=== PATIENT | male | born 1960 | race Hispanic/Latino ===

== ENCOUNTER 2017-09-28 22:01 | Inpatient (IN) | payer OTHER ==
[2017-09-28 23:28] LABS: CARBON DIOXIDE 27 mmol/L (21-32); CHLORIDE 100 mmol/L (101-111); GLOMERULAR FILTR. RATE CALC 82 mL/min (>60); GLUCOSE,RANDOM 184 mg/dL (70-105); POTASSIUM 4.2 mmol/L (3.5-5.1); SODIUM SERUM 136 mmol/L (136-145); UREA NITROGEN, BLOOD 9 mg/dL (7-18)
[2017-09-28 23:41] LABS: ALANINE AMINOTRANSFERASE 61 U/L (12-78); ALBUMIN 2.8 g/dL (3.5-5.0); ASPARTATE AMINOTRANSFERASE 37 U/L (10-37); CREATINE KINASE MB < 0.5 ng/mL (0.5-3.6); CREATINE KINASE, TOTAL 86 U/L (21-232); MYOGLOBIN 41 ng/mL (10-92); TOTAL PROTEIN, SERUM 6.7 g/dL (6.0-8.3)
[2017-09-28 23:42] LABS: APPEARANCE,URINE Clear (CLEAR); BILIRUBIN,URINE Negative (NEGATIVE); COLOR,URINE Dark Yellow (YELLOW); GLUCOSE, URINE (UA) Negative (NEGATIVE); KETONES,URINE Negative (NEGATIVE); LEUKOCYTE ESTERASE ,URINE Negative (NEGATIVE); NITRATE,URINE Negative (NEGATIVE); OCCULT BLOOD,URINE Negative (NEGATIVE); PH,URINE 6.5 (5.0-8.0); PROTEIN,URINE POS 1+ (NEGATIVE)
[2017-09-28 23:56] LABS: RBC,URINE None Seen /HPF (0-1); WBC,URINE None Seen /HPF (0-1)
[2017-09-28 23:57] LABS: BACTERIA,URINE None Seen /HPF (None Seen); MUCUS,URINE Rare LPF (None Seen); SQUAMOUS EPITHELIAL CELL,UR None Seen /HPF (0-2)
[2017-09-29] VITALS (17 sets, daily range): BP systolic 122–157; BP diastolic 61–92
[2017-09-29] MEDS: NITROGLYCERIN 1GM/1 INCH PACKET TD SCH ×4 (00:30→23:46)
[2017-09-29] MEDS ORDERED: DEXTROSE 50%-WATER 50 ML DISP.SYRIN IV PRN (00:30)
[2017-09-29] MEDS ORDERED: GLUCAGON 1MG KIT 1 MG ML IM PRN (00:30)
[2017-09-29] MEDS: SODIUM CHLORIDE 0.9% 1000ML 1,000 ML IV SCH ×5 (00:30→22:24)
[2017-09-29] MEDS ORDERED: ONDANSETRON HCL 4 MG/2 ML VIAL IV PRN (00:30)
[2017-09-29] MEDS ORDERED: NITROGLYCERIN 0.4 MG SL TAB SL PRN (00:30)
[2017-09-29] MEDS ORDERED: ACETAMINOPHEN 325 MG TAB PO PRN (00:30)
[2017-09-29] MEDS ORDERED: SODIUM CHLORIDE 0.9% 1000ML 3,000 ML IV ONE (02:07)
[2017-09-29] MEDS ORDERED: NITROGLYCERIN 1GM/1 INCH PACKET TD ONE (02:07)
[2017-09-29 06:35] LABS: CREATINE KINASE MB 2.2 ng/mL (0.5-3.6); THYROID STIMULATING HORMONE 1.08 uIU/mL (0.36-3.74)
[2017-09-29 06:44] LABS: TROPONIN I 3.02 ng/mL (0.00-0.06)
[2017-09-29] MEDS: INSULIN HUMULIN R 100 UNIT/ML 3ML SQ SCH ×4 (07:30→22:12)
[2017-09-29] MEDS: FAMOTIDINE/PF 20 MG/2 ML VIAL IV SCH ×2 (09:00→22:00)
[2017-09-29] MEDS ORDERED: METOPROLOL TARTRATE 25 MG TAB PO SCH (09:00)
[2017-09-29] MEDS: ASPIRIN 325 MG TABLET PO SCH (09:00)
[2017-09-29] MEDS ORDERED: BIVALIRUDIN 250 MG/VIAL IV ONE ×2 (11:34→12:05)
[2017-09-29] MEDS ORDERED: NITROGLYCERIN 5 MG/ML 10 ML VIAL IV ONE (11:35)
[2017-09-29] MEDS ORDERED: HEPARIN SODIUM 1000UNIT/ML 10ML VIAL ONE (11:35)
[2017-09-29] MEDS ORDERED: IOPAMIDOL-370 100 ML VIAL IV ONE (11:35)
[2017-09-29] MEDS ORDERED: LIDOCAINE HCL 2% 20ML ONE (11:35)
[2017-09-29] MEDS ORDERED: ISOVUE-370 50ML VIAL IV ONE (11:35)
[2017-09-29 11:44] LABS: BASOPHILS % (AUTO) 0.2 % (0.0-5.0); EOSINOPHILS % (AUTO) 0.2 % (0.0-8.0); HEMATOCRIT 38.9 % (42-54); LYMPHOCYTES % (AUTO) 12.9 % (21.0-51.0); MEAN CORPUSCULAR HEMOGLOBIN 29.2 pg (27.0-33.0); MEAN CORPUSCULAR HGB CONC 33.2 g/dL (32.0-36.0); MEAN CORPUSCULAR VOLUME 87.9 fL (79-99); MONOCYTES % (AUTO) 10.3 % (3.0-13.0); NEUTROPHILS % (AUTO) 76.4 % (40.0-77.0); PLATELET COUNT (AUTO) 170 K/uL (130-400); RED BLOOD CELL COUNT(AUTO) 4.42 MIL/uL (4.50-6.20); RED CELL DISTRIBUTION WIDTH 13.6 % (11.0-15.5); WHITE BLOOD COUNT (AUTO) 14.3 K/uL (4.8-10.8)
[2017-09-29 12:00] LABS: INR 0.95 (0.85-1.15); PARTIAL THROMBOPLASTIN TIME 31.5 SEC (26.3-35.5)
[2017-09-29 12:18] LABS: CREATINE KINASE MB 1.6 ng/mL (0.5-3.6)
[2017-09-29 12:21] LABS: TROPONIN I 4.4 ng/mL (0.00-0.06)
[2017-09-29] MEDS ORDERED: MIDAZOLAM HCL 1 MG/ML 2ML VIAL ONE (12:26)
[2017-09-29] MEDS ORDERED: MORPHINE SULFATE 4 MG/1ML SYG ONE (12:26)
[2017-09-29] MEDS ORDERED: TICAGRELOR 90 MG TABLET ONE (13:07)
[2017-09-29] MEDS ORDERED: ASPIRIN 325MG EC TAB 325 MG TABLET.DR PO ONE (13:07)
[2017-09-29] MEDS: ACETAMINOPHEN 325 MG TAB PO PRN (14:32)
[2017-09-29] MEDS: METOPROLOL TARTRATE 25 MG TAB PO SCH (22:00)
[2017-09-29] MEDS: TICAGRELOR 90 MG TABLET PO SCH (22:00)
[2017-09-30 03:59] LABS: MEAN CORPUSCULAR HEMOGLOBIN 29.7 pg (27.0-33.0); MEAN CORPUSCULAR VOLUME 87.2 fL (79-99); PLATELET COUNT (AUTO) 168 K/uL (130-400); RED BLOOD CELL COUNT(AUTO) 4.13 MIL/uL (4.50-6.20); RED CELL DISTRIBUTION WIDTH 13.7 % (11.0-15.5); WHITE BLOOD COUNT (AUTO) 14.1 K/uL (4.8-10.8)
[2017-09-30 04:00] VITALS: BP 117/78
[2017-09-30 04:16] LABS: CREATININE 1.1 mg/dL (0.5-1.5); POTASSIUM 4.3 mmol/L (3.5-5.1)
[2017-09-30] MEDS: INSULIN HUMULIN R 100 UNIT/ML 3ML SQ SCH ×4 (07:08→21:00)
[2017-09-30 07:34] VITALS: BP 130/75
[2017-09-30] MEDS ORDERED: TICA90TA PO (08:39)
[2017-09-30] MEDS ORDERED: ASPI-1005 PO (08:39)
[2017-09-30] MEDS ORDERED: PRAV20TA4 PO (08:39)
[2017-09-30] MEDS ORDERED: METO25 PO (08:39)
[2017-09-30] MEDS: ASPIRIN 81MG TAB.CHEW PO SCH ×2 (09:00→09:15)
[2017-09-30] MEDS: ASPIRIN 325 MG TABLET PO SCH (09:00)
[2017-09-30] MEDS: FAMOTIDINE/PF 20 MG/2 ML VIAL IV SCH ×2 (09:12→21:47)
[2017-09-30] MEDS: TICAGRELOR 90 MG TABLET PO SCH ×2 (09:13→21:47)
[2017-09-30] MEDS: NITROGLYCERIN 1GM/1 INCH PACKET TD SCH ×2 (09:15→15:52)
[2017-09-30] MEDS: PANTOPRAZOLE SODIUM 40 MG TABLET.DR PO SCH (09:15)
[2017-09-30] MEDS: METOPROLOL TARTRATE 25 MG TAB PO SCH ×2 (09:16→21:47)
[2017-09-30 11:20] VITALS: BP 121/68
[2017-09-30] MEDS: ACETAMINOPHEN 325 MG TAB PO PRN (15:53)
[2017-09-30 16:12] VITALS: BP 140/81
[2017-09-30] MEDS: SODIUM CHLORIDE 0.9% 1000ML 1,000 ML IV SCH ×2 (16:30→21:54)
[2017-09-30 16:44] LABS: APPEARANCE,URINE Clear (CLEAR); BILIRUBIN,URINE Small (NEGATIVE); COLOR,URINE Dark Yellow (YELLOW); GLUCOSE, URINE (UA) Negative (NEGATIVE); KETONES,URINE Trace mg/dL (NEGATIVE); LEUKOCYTE ESTERASE ,URINE Negative (NEGATIVE); NITRATE,URINE Negative (NEGATIVE); OCCULT BLOOD,URINE Negative (NEGATIVE); PH,URINE 7.5 (5.0-8.0); PROTEIN,URINE POS 2+ (NEGATIVE); UROBILINOGEN,URINE >=8.0 mg/dL (0.2-1.0)
[2017-09-30 16:55] LABS: BACTERIA,URINE None Seen /HPF (None Seen); MUCUS,URINE Few LPF (None Seen); RBC,URINE None Seen /HPF (0-1); SQUAMOUS EPITHELIAL CELL,UR 0-2 /HPF (0-2); WBC,URINE 0-1 /HPF (0-1)
[2017-09-30] MEDS: LEVOFLOXACIN 500 MG/D5W 100 ML 100 ML IV SCH (18:09)
[2017-09-30 19:26] VITALS: BP 136/74
[2017-09-30 23:27] VITALS: BP 123/65
[2017-10-01] MEDS: NITROGLYCERIN 1GM/1 INCH PACKET TD SCH ×3 (00:29→16:19)
[2017-10-01 03:58] VITALS: BP 123/67
[2017-10-01 04:00] LABS: MEAN CORPUSCULAR HEMOGLOBIN 30.2 pg (27.0-33.0); MEAN CORPUSCULAR HGB CONC 34.5 g/dL (32.0-36.0); MEAN CORPUSCULAR VOLUME 87.6 fL (79-99); PLATELET COUNT (AUTO) 206 K/uL (130-400); RED BLOOD CELL COUNT(AUTO) 4.11 MIL/uL (4.50-6.20); RED CELL DISTRIBUTION WIDTH 13.8 % (11.0-15.5); WHITE BLOOD COUNT (AUTO) 15.6 K/uL (4.8-10.8)
[2017-10-01 04:25] LABS: BASOPHILS % (MANUAL) 1 % (0-2); LYMPHOCYTES % (MANUAL) 8 % (22-44); MONOCYTES % (MANUAL) 11 % (2-9); SEGMENTED NEUTROPHILS % 80 % (40-70)
[2017-10-01 04:26] LABS: MAN.DIFF COMMENT-IMPRESSION MANUAL DIFFERENTIAL; PLATELET MORPHOLOGY COMMENT ADEQUATE
[2017-10-01] MEDS: INSULIN HUMULIN R 100 UNIT/ML 3ML SQ SCH ×4 (06:47→21:47)
[2017-10-01 07:14] VITALS: BP 115/58
[2017-10-01] MEDS: METOPROLOL TARTRATE 25 MG TAB PO SCH ×2 (08:03→21:32)
[2017-10-01] MEDS: TICAGRELOR 90 MG TABLET PO SCH ×2 (08:03→21:30)
[2017-10-01] MEDS: ASPIRIN 81MG TAB.CHEW PO SCH ×2 (08:03→09:00)
[2017-10-01] MEDS: FAMOTIDINE/PF 20 MG/2 ML VIAL IV SCH ×2 (08:03→21:30)
[2017-10-01] MEDS: PANTOPRAZOLE SODIUM 40 MG TABLET.DR PO SCH (08:03)
[2017-10-01] MEDS: ASPIRIN 325 MG TABLET PO SCH (09:00)
[2017-10-01] MEDS: SODIUM CHLORIDE 0.9% 1000ML 1,000 ML IV SCH ×2 (09:28→21:51)
[2017-10-01 11:23] VITALS: BP 116/64
[2017-10-01] MEDS: ACETAMINOPHEN 325 MG TAB PO PRN ×2 (16:03→23:17)
[2017-10-01] MEDS: LEVOFLOXACIN 500 MG/D5W 100 ML 100 ML IV SCH (16:22)
[2017-10-01 16:41] VITALS: BP 135/75
[2017-10-01 19:51] VITALS: BP 121/65
[2017-10-01 23:29] VITALS: BP 150/79
[2017-10-02] MEDS: NITROGLYCERIN 1GM/1 INCH PACKET TD SCH ×3 (03:08→15:33)
[2017-10-02 04:00] VITALS: BP_SYST 124; BP_SYST 56; BP_DIAS 56
[2017-10-02] MEDS: INSULIN HUMULIN R 100 UNIT/ML 3ML SQ SCH ×4 (05:25→21:00)
[2017-10-02] MEDS: SODIUM CHLORIDE 0.9% 1000ML 1,000 ML IV SCH ×2 (07:13→16:30)
[2017-10-02] MEDS: ASPIRIN 81MG TAB.CHEW PO SCH ×2 (07:13→07:44)
[2017-10-02] MEDS: METOPROLOL TARTRATE 25 MG TAB PO SCH ×2 (07:43→21:54)
[2017-10-02] MEDS: FAMOTIDINE/PF 20 MG/2 ML VIAL IV SCH ×2 (07:44→21:54)
[2017-10-02] MEDS: PANTOPRAZOLE SODIUM 40 MG TABLET.DR PO SCH (07:44)
[2017-10-02] MEDS: ASPIRIN 325 MG TABLET PO SCH (07:44)
[2017-10-02] MEDS: TICAGRELOR 90 MG TABLET PO SCH ×2 (07:44→21:54)
[2017-10-02 08:11] VITALS: BP 134/73
[2017-10-02 11:27] VITALS: BP 129/55
[2017-10-02] MEDS: LEVOFLOXACIN 500 MG/D5W 100 ML 100 ML IV SCH (16:36)
[2017-10-02 16:38] VITALS: BP 128/72
[2017-10-02 19:57] VITALS: BP 129/73
[2017-10-03] VITALS: BP 124/76
[2017-10-03] MEDS: NITROGLYCERIN 1GM/1 INCH PACKET TD SCH ×2 (00:24→07:35)
[2017-10-03 03:53] VITALS: BP 132/65
[2017-10-03] MEDS: SODIUM CHLORIDE 0.9% 1000ML 1,000 ML IV SCH (04:30)
[2017-10-03] MEDS: ASPIRIN 81MG TAB.CHEW PO SCH ×2 (06:51→07:37)
[2017-10-03] MEDS: ASPIRIN 325 MG TABLET PO SCH (06:51)
[2017-10-03] MEDS: INSULIN HUMULIN R 100 UNIT/ML 3ML SQ SCH (07:02)
[2017-10-03 07:30] VITALS: BP 107/62
[2017-10-03] MEDS: FAMOTIDINE/PF 20 MG/2 ML VIAL IV SCH (07:35)
[2017-10-03] MEDS: METOPROLOL TARTRATE 25 MG TAB PO SCH (07:36)
[2017-10-03] MEDS: PANTOPRAZOLE SODIUM 40 MG TABLET.DR PO SCH (07:37)
[2017-10-03] MEDS: TICAGRELOR 90 MG TABLET PO SCH (07:37)
[2017-10-03] MEDS ORDERED: DOXY100T2 PO (09:49)
[2017-10-27] MEDS ORDERED: METF10004 PO (00:55)
[2017-10-27] MEDS ORDERED: TAMS0.4C32 PO (00:55)
== END 2017-10-03 10:30 | disposition home or self-care (01) | DRG 247 ==
LOC: EDH 22:01 → OBSVTOIN 09-29 → EDHIP 09-29 → 2CH 09-29 13:50 → 2AH 09-29 18:17
PROVIDERS: ADMIT Internal Medicine; ATTEND Internal Medicine
PROC: 4A023N7 Measurement of Cardiac Sampling and Pressure, Left Heart, Percutaneous Approach (ICD-10-PCS; principal; 2017-09-29)
PROC: 027035Z Dilation of Coronary Artery, One Artery with Two Drug-eluting Intraluminal Devices, Percutaneous Approach (ICD-10-PCS; 2017-09-29)
PROC: B2111ZZ Fluoroscopy of Multiple Coronary Arteries using Low Osmolar Contrast (ICD-10-PCS; 2017-09-29)
PROC: B2151ZZ Fluoroscopy of Left Heart using Low Osmolar Contrast (ICD-10-PCS; 2017-09-29)
PROC: B2121ZZ Fluoroscopy of Single Coronary Artery Bypass Graft using Low Osmolar Contrast (ICD-10-PCS; 2017-09-29)
DX: I21.4 Non-ST elevation (NSTEMI) myocardial infarction (principal); E66.01 Morbid (severe) obesity due to excess calories; E11.9 Type 2 diabetes mellitus without complications; E86.0 Dehydration; E78.5 Hyperlipidemia, unspecified; I10 Essential (primary) hypertension; L83 Acanthosis nigricans; B34.9 Viral infection, unspecified; I25.10 Atherosclerotic heart disease of native coronary artery without angina pectoris; I25.2 Old myocardial infarction; Z82.49 Family history of ischemic heart disease and other diseases of the circulatory system; X30.XXXA Exposure to excessive natural heat, initial encounter; Y93.89 Activity, other specified; Y92.89 Other specified places as the place of occurrence of the external cause; Y99.8 Other external cause status
CPT/HCPCS: 36415; 71046; 80048; 80053; 80061; 81001; 82550; 82553; 82948; 83874; 84443; 84484; 85025; 85027; 85610; 85651; 85730; 86140; 87040; 87088; 87804; 93005; 93458; 99156; 99157; C1760; C1769; C1887; C1894; C9600; C9601; J0583; J1644; J1815; J1956; J2250; J2270; J2405; J3490; J7030; Q9967